=== PATIENT | female | born 2000 | race Caucasian/White ===

== ENCOUNTER 2024-06-22 11:00 | Emergency (ER) | payer SELFPAY ==
[~2024-06-22] VITALS: Ht 172.7 cm; Wt 91.0 kg
[2024-06-22] MEDS: DIPHENHYDRAMINE 50MG/ML VIAL IM STA (11:31)
[2024-06-22] MEDS: LORAZEPAM 2MG/ML INJ IM STA (11:31)
[2024-06-22] MEDS: HALOPERIDOL LACTATE 5MG/ML VIAL IM STA ×2 (11:31→11:54)
[2024-06-22] MEDS ORDERED: LORAZEPAM 2MG/ML INJ IM STA (11:54)
[2024-06-22] MEDS: LORAZEPAM 2MG/ML UD SYRINGE IM NR (12:00)
[2024-06-22 12:52] LABS: BASOPHILS % 0.4 % (0.0-2.0); EOSINOPHILS % 0.4 % (0.0-5.0); HEMATOCRIT. 40.4 % (36.0-48.0); HEMOGLOBIN. 13.4 g/dL (12.0-16.0); LYMPHOCYTES % 25.4 % (20.0-50.0); MEAN CORPUSCULAR HEMOGLOBIN 30.1 pg (28.0-32.0); MEAN CORPUSCULAR HGB CONC 33.1 g/dL (31.0-37.0); MEAN CORPUSCULAR VOLUME 90.9 fL (81.0-99.0); MEAN PLATELET VOLUME 8.2 fl (7.4-10.4); MONOCYTES % 6.8 % (2.0-8.0); PLATELET 323 x1000/uL (130-400); RED BLOOD CELL COUNT 4.44 mill/uL (4.2-5.4); WHITE BLOOD COUNT 13.8 x1000/uL (4.5-11.0)
[2024-06-22 12:56] LABS: CHLORIDE 106 mEq/L (98-107); POTASSIUM 3.8 mEq/L (3.5-5.1); SODIUM 139 mEq/L (136-145)
[2024-06-22 12:57] LABS: CARBON DIOXIDE 26 mEq/L (21-32)
[2024-06-22 12:58] LABS: CALCIUM 9.9 mg/dL (8.7-10.4)
[2024-06-22 13:02] LABS: CREATININE 0.7 mg/dL (0.6-1.0); GLUCOSE 99 mg/dL (70-105); UREA NITROGEN BLOOD 8 mg/dL (9-23)
[2024-06-22 13:04] LABS: ACETAMINOPHEN < 2 ug/mL (10-30)
[2024-06-22 13:45] VITALS: O2SAT 100
[2024-06-22 13:54] LABS: ETHANOL BLOOD < 10 mg/dL (<10)
[2024-06-22 18:07] LABS: CLARITY URINE CLEAR (CLEAR); COLOR URINE YELLOW (YELLOW); GLUCOSE URINE NEGATIVE (NEGATIVE); KETONES URINE NEGATIVE (NEGATIVE); LEUKOCYTE ESTERASE URINE NEGATIVE (NEGATIVE); NITRITE URINE POSITIVE (NEGATIVE); OCCULT BLOOD URINE 1+ (NEGATIVE); PROTEIN URINE TRACE (NEGATIVE); SPECIFIC GRAVITY URINE 1.017 (1.005-1.030); UROBILINOGEN URINE 0.2 E.U./dL (0.2-1.0)
[2024-06-22 18:20] LABS: ALANINE AMINOTRANSFERASE 21 IU/L (10-49); ALBUMIN 4.4 g/dL (3.2-4.8); ASPARTATE AMINOTRANSFERASE 36 IU/L (<34); BILIRUBIN DIRECT < 0.1 mg/dL (<=3.0); BILIRUBIN TOTAL 0.3 mg/dL (0.1-1.0); PROTEIN TOTAL 7.9 g/dL (6.0-8.3)
[2024-06-22 18:24] LABS: *AMPHETAMINES SCREEN URINE PRESUMPTIVE POSITIVE (NEGATIVE); *BARBITURATES SCREEN URINE NEGATIVE (NEGATIVE); *BENZODIAZEPINES SCREEN URINE NEGATIVE (NEGATIVE); *COCAINE SCREEN URINE NEGATIVE (NEGATIVE); CANNABINOID URINE SCREEN PRESUMPTIVE POSITIVE (NEGATIVE); ECSTASY MDMA SCREEN URINE CONF.TEST INDICATED (NEGATIVE); METHADONE URINE SCREEN NEGATIVE (NEGATIVE); OPIATES URINE SCREEN NEGATIVE (NEGATIVE); PHENCYCLIDINE URINE SCREEN NEGATIVE (NEGATIVE)
[2024-06-22 18:26] LABS: HCG SCREEN NEGATIVE
[2024-06-22 18:52] LABS: BACTERIA URINE 2+; SQUAMOUS EPITHELIAL CELL URINE 1+ /lpf (RARE/1+)
[2024-06-22 18:53] LABS: WBC URINE 0-2 /hpf (0-2)
[2024-06-22] MEDS: NITROFURANTOIN 100MG M/M CAPSULE PO STA (19:07)
[2024-06-24] MEDS: DIPHENHYDRAMINE 25MG CAPSULE PO ONE (04:15)
[2024-06-24] MEDS: TRAZODONE HCL 50MG TABLET PO SCH (23:38)
[2024-06-25 06:00] VITALS: BP 132/74; PULSE 92; RESP 16; TEMP 36.8; O2SAT 99
== END 2024-06-25 08:50 | disposition home or self-care (01) ==
LOC: ER 11:00
DX: R46.2 Strange and inexplicable behavior (principal); Z00.00 Encounter for general adult medical examination without abnormal findings; Z20.822 Contact with and (suspected) exposure to COVID-19
CPT/HCPCS: 80076; 80305; 80048; 81003; 80307; 80329; 80320; 84703; 85025; 36415; 96372; 99291; 87426; J1200; J1630; J2060; Z7610 ×2; G0480